=== PATIENT | female | born 1965 | race Caucasian/White ===

== ENCOUNTER 2022-01-20 16:43 | Outpatient (CLI) | payer BC, MEDICARE ==
[2022-01-20 17:36] LABS: Hemoglobin 10.9 g/dL (12.0-15.5); Mean Corpuscular HGB CONC 30.9 g/dL (32.0-36.0); Mean Corpuscular Volume 97.2 fl (81.6-98.3); Mean Platelet Volume 11.1 fl (7.4-10.4); Platelet Count 273 10x3/uL (150-450); RBC Distribution Width 13.2 % (11.5-14.5); Red Blood Cell (RBC) Count 3.63 10x6/uL (3.90-5.03); White Blood Cell (WBC) Count 10.3 10x3/uL (3.5-10.5)
[2022-01-20 17:57] LABS: Anion Gap 12 mmol/L (10-20); BUN (Urea Nitrogen) 18 mg/dL (9.8-20.1); Calc. Creatinine Clearance 0 mL/min (70-130); Calcium 9.4 mg/dL (7.8-10.44); Carbon Dioxide 27 mmol/L (22-29); Chloride 104 mmol/L (98-107); Glucose 94 mg/dL (70-105); Potassium 4.3 mmol/L (3.5-5.1); Sodium 139 mmol/L (136-145)
[2022-01-21 00:14] LABS: SARS-CoV-2 PCR by NAA Not Detected (NotDetected)
== END 2022-01-20 16:44 | disposition home or self-care (01) ==
LOC: LABBT 16:43
PROVIDERS: ATTEND Thoracic Surgery (Cardiothoracic Vascular Surgery)
DX: Z01.812 Encounter for preprocedural laboratory examination (principal); Z20.822 Contact with and (suspected) exposure to COVID-19
CPT/HCPCS: 80048; 85027; U0003; U0005

== ENCOUNTER 2022-01-23 05:34 | Day surgery (SDC) | payer BC, MEDICARE ==
[2022-01-21 13:07] VITALS: BMI 36.9
[2022-01-23] MEDS ORDERED: fentaNYL Citrate/PF 100 MCG/2 ML SYRINGE ONE (06:49)
[2022-01-23] MEDS ORDERED: ceFAZolin (BATCH) 2 GM/100 ML BAG ONE (07:19)
[2022-01-23] MEDS ORDERED: Midazolam HCl 2 mg/2 ml Vial ONE (07:21)
[2022-01-23] MEDS ORDERED: Dexmedetomidine 200 MCG/2 ML VIAL ONE (07:21)
[2022-01-23] MEDS ORDERED: EPINEPHrine 1 MG/ML AMP ONE (07:32)
[2022-01-23] MEDS ORDERED: Bupivacaine 0.25% 10 ML VIAL ONE (07:32)
[2022-01-23] MEDS ORDERED: PROPOFOL 200 MG/20 ML VIAL ONE (07:35)
== END 2022-01-23 09:20 | disposition home or self-care (01) ==
LOC: SDC 05:34
PROVIDERS: ATTEND Thoracic Surgery (Cardiothoracic Vascular Surgery)
PROC: 05BY0ZZ Excision of Upper Vein, Open Approach (ICD-10-PCS; principal; 2022-01-23)
DX: I86.8 Varicose veins of other specified sites (principal); E78.5 Hyperlipidemia, unspecified; I10 Essential (primary) hypertension; M79.7 Fibromyalgia; G62.9 Polyneuropathy, unspecified; I25.2 Old myocardial infarction; Z86.73 Personal history of transient ischemic attack (TIA), and cerebral infarction without residual deficits; Z79.82 Long term (current) use of aspirin; Z79.899 Other long term (current) drug therapy; Z88.5 Allergy status to narcotic agent
CPT/HCPCS: 88304; J0171; J0690; J2250; J2704; S0020

== ENCOUNTER 2025-08-02 10:23 | Outpatient (CLI) | payer BC, MEDICARE ==
[2025-08-02 11:49] LABS: #Basophils 0.11 10x3/uL (0.0-0.2); #Eosinophils 0.41 10x3/uL (0.0-0.7); #Monocytes 0.67 10x3/uL (0.11-0.59); #Neutrophils 5.79 10x3/uL (1.40-6.50); %Basophils 1.0 % (0.0-1.0); %Eosinophils 3.9 % (0.0-10.0); %Lymphocytes 33.0 % (21.0-51.0); %Monocytes 6.4 % (0.0-10.0); %Neutrophils 55.3 % (42.0-75.0); Hematocrit 37.0 % (36.0-47.0); Hemoglobin 11.0 g/dL (12.0-16.0); Mean Corpuscular Hemoglobin 29.8 pg (27.0-31.0); Mean Corpuscular Volume 100.3 fL (78.0-98.0); Platelet Count 311 10x3/uL (130-400); Red Blood Cell (RBC) Count 3.69 mill/uL (4.20-5.40); White Blood Cell (WBC) Count 10.48 10x3/uL (4.8-10.8)
[2025-08-02 11:57] LABS: Bacteria/HPF None Seen HPF (None Seen); Glucose, Urine (Dipstick) Normal (Negative); Leukocyte 25 Leu/uL (Negative); Protein, Urine (Dipstick) Negative (Neg-Trace); RBC/HPF 0-3 HPF (0-3); Specific Gravity, Urine 1.024 (1.002-1.036); WBC/HPF 0-3 HPF (0-3)
[2025-08-02 12:03] LABS: INR-International Normal Ratio 1.0; Prothrombin Time 13.5 sec (12.0-14.7)
[2025-08-02 12:16] LABS: Anion Gap 15 mmol/L (10-20); BUN (Urea Nitrogen) 21 mg/dL (9.8-20.1); Calc. Creatinine Clearance 0 mL/min (70-130); Calcium 10.1 mg/dL (7.8-10.44); Carbon Dioxide 25 mmol/L (23-31); Chloride 103 mmol/L (98-107); Glucose 91 mg/dL (80-115); Potassium 4.2 mmol/L (3.5-5.1); Sodium 139 mmol/L (136-145)
== END 2025-08-02 10:24 | disposition home or self-care (01) ==
LOC: LABBT 10:23
PROVIDERS: ATTEND Orthopaedic Surgery
DX: Z01.818 Encounter for other preprocedural examination (principal); M17.11 Unilateral primary osteoarthritis, right knee
CPT/HCPCS: 71046; 80048; 81001; 85025; 85610; 87081; 93005; 93010

== ENCOUNTER 2025-08-02 11:33 | Outpatient (CLI) | payer BC, MEDICARE | END 2025-08-02 11:34 | disposition home or self-care (01) | LOC: CT 11:33 | PROVIDERS: ATTEND Orthopaedic Surgery | DX: Z01.818 Encounter for other preprocedural examination (principal); M17.11 Unilateral primary osteoarthritis, right knee ==

== ENCOUNTER 2025-08-09 05:18 | Observation (INO) | payer BC, MEDICARE ==
[2025-08-02 10:47] VITALS: BMI 38.7
[2025-08-09] MEDS ORDERED: Tranexamic Acid 1,000 MG/10 ML VIAL ONE ×2 (06:18→09:29)
[2025-08-09] MEDS ORDERED: Vancomycin HCl 1.5 GM VIAL ONE (06:18)
[2025-08-09] MEDS ORDERED: Lidocaine 1% (PF) 30 ML VIAL ONE (06:40)
[2025-08-09] MEDS ORDERED: Ropivacaine 0.5% HCl/PF (150 MG/30 ML VIAL) ONE (06:40)
[2025-08-09] MEDS ORDERED: CEFAZOLIN 2 GM VIAL ONE (06:55)
[2025-08-09] MEDS ORDERED: Lidocaine 1% PF 5 ML VIAL ONE (07:07)
[2025-08-09] MEDS ORDERED: HYDROcodone/Acetaminophen 5/325 mg Tablet PO PRN (07:15)
[2025-08-09] MEDS ORDERED: Ropivacaine 0.2% 550 ML 550 ML NERVE BLCK SCH (07:15)
[2025-08-09] MEDS ORDERED: Ondansetron PF 4 MG/2 ML Vial IVP PRN ×2 (07:15→07:17)
[2025-08-09] MEDS ORDERED: diphenhydrAMINE 25 MG CAP PO PRN (07:17)
[2025-08-09] MEDS ORDERED: PROPOFOL 200 MG/20 ML VIAL ONE (07:21)
[2025-08-09] MEDS ORDERED: Metoclopramide HCl 10 MG (2 mL) VIAL ONE (07:23)
[2025-08-09] MEDS ORDERED: Ondansetron PF 4 MG/2 ML Vial ONE (07:23)
[2025-08-09] MEDS ORDERED: PHENYLEPHRINE-NS 100 MCG/ML 10 ML SYRINGE ONE (07:26)
[2025-08-09] MEDS ORDERED: Melatonin 3 MG TAB PO PRN (07:41)
[2025-08-09] MEDS ORDERED: Ubrogepant [Ubrelvy] 100 MG Tablet PO PRN (07:48)
[2025-08-09] MEDS ORDERED: Non-Formulary Item 1 EACH (Multivit-Min/Iron/Folic/Lutein [Centrum Silver Women] 1 TABLET PO SCH (09:00)
[2025-08-09] MEDS ORDERED: HYDROmorphone 0.5 MG/0.5 ML SYRINGE ONE (09:30)
[2025-08-09] MEDS ORDERED: Ketorolac Tromethamine 30 MG (1 mL) VIAL IVP SCH (14:00)
[2025-08-09] MEDS: Acetaminophen 325 MG TAB PO PRN (15:06)
[2025-08-09 16:23] VITALS: BMI 38.7
[2025-08-09] MEDS: Ketorolac Tromethamine 30 MG (1 mL) VIAL IVP SCH (17:26)
[2025-08-09] MEDS: Carvedilol 6.25 MG TAB PO SCH (17:33)
[2025-08-09] MEDS: Aspirin 81 mg Enteric Coated Tablet PO SCH (17:33)
[2025-08-09] MEDS: ALPRAZolam 0.5 MG TAB PO SCH ×2 (17:33→20:13)
[2025-08-09] MEDS: Multivitamin W/ Minerals 1 TAB PO SCH (17:34)
[2025-08-09] MEDS: Mirabegron ER 25 MG ER.TAB PO SCH (17:34)
[2025-08-09] MEDS: Ferrous Gluconate 324 MG TAB PO SCH (17:34)
[2025-08-09] MEDS: Magnesium Oxide 400 MG TAB PO SCH (17:34)
[2025-08-09] MEDS: Cholecalciferol (Vitamin D3) 400 UNITS TAB PO SCH (17:34)
[2025-08-09] MEDS: Pantoprazole 40 MG DR.TAB PO SCH (17:35)
[2025-08-09] MEDS: Senokot S 8.6-50 MG TAB PO SCH (17:35)
[2025-08-09] MEDS: Losartan 25 MG TAB PO SCH (17:39)
[2025-08-09] MEDS: Mirtazapine 15 MG TAB PO SCH (20:10)
[2025-08-09] MEDS: Ezetimibe 10 MG TAB PO SCH (20:11)
[2025-08-09] MEDS: Zonisamide 100 MG CAP PO SCH (20:11)
[2025-08-09] MEDS ORDERED: Aspirin Chewable 81 MG TAB PO SCH (21:00)
[2025-08-09] MEDS: HYDROcodone/Acetaminophen 5/325 mg Tablet PO PRN (22:25)
[2025-08-10 04:37] VITALS: TEMP 97.6
[2025-08-10 04:55] LABS: Hematocrit 29.0 % (36.0-47.0); Hemoglobin 8.6 g/dL (12.0-16.0); Mean Corpuscular Hemoglobin 29.4 pg (27.0-31.0); Mean Corpuscular Volume 99.0 fL (78.0-98.0); Platelet Count 237 10x3/uL (130-400); Red Blood Cell (RBC) Count 2.93 mill/uL (4.20-5.40); White Blood Cell (WBC) Count 14.17 10x3/uL (4.8-10.8)
[2025-08-10 12:17] VITALS: BP 94/61
== END 2025-08-10 15:00 | disposition home or self-care (01) ==
LOC: SDC 05:18 → SURG A 12:28 → SDC 15:31 → SURG A 15:31
PROVIDERS: ADMIT Orthopaedic Surgery; ATTEND Orthopaedic Surgery
PROC: 0SRC0JZ Replacement of Right Knee Joint with Synthetic Substitute, Open Approach (ICD-10-PCS; principal; 2025-08-09)
PROC: 3E0T3BZ Introduction of Anesthetic Agent into Peripheral Nerves and Plexi, Percutaneous Approach (ICD-10-PCS; 2025-08-09)
DX: M17.11 Unilateral primary osteoarthritis, right knee (principal); I10 Essential (primary) hypertension; I25.10 Atherosclerotic heart disease of native coronary artery without angina pectoris; E78.5 Hyperlipidemia, unspecified; E66.9 Obesity, unspecified; Z68.39 Body mass index [BMI] 39.0-39.9, adult; Z86.73 Personal history of transient ischemic attack (TIA), and cerebral infarction without residual deficits; Z98.890 Other specified postprocedural states; Z88.5 Allergy status to narcotic agent; Z79.899 Other long term (current) drug therapy
CPT/HCPCS: 0055T; 27447; 64448; 36415; 85027; A4306; C1713; C1776; C1889; J1100; J1171; J1885; J2003; J2250; J2405; J2704; J2765; J2795; J3010; J7030